=== PATIENT | female | born 1930 | race American Indian/Alaskan Native ===

== ENCOUNTER 2017-09-19 13:04 | Emergency (ER) | payer MEDICARE, OTHER ==
[~2017-09-19] VITALS: Ht 152.4 cm; Wt 74.4 kg
[~2017-09-19 13:04] MED LIST: AMLODIPINE BESYL5 MG PO; CALCIUM 600 +1 EAC3 PO; CEPHALEXIN250 MG PO; COLACE100 MG PO; DICLOFENAC SOD100 GM TOP; HYDROCHLOROTHIA25 MG PO; LISINOPRIL40 MG PO; MAG-OXIDE400 MG PO; NORCO 5-325 TA1 EACH PO; NOVOLOG100 UNITS/ SUB-Q; POTASSIUM CHLO10 MEQ PO; PRILOSEC20 MG PO; TOPROL XL100 MG PO; VICODIN 5-3001 EACH PO
== END 2017-09-19 18:43 | disposition home or self-care (01) ==
LOC: ED 13:04
DX: H57.11 Ocular pain, right eye (principal); R70.0 Elevated erythrocyte sedimentation rate; E11.9 Type 2 diabetes mellitus without complications; I10 Essential (primary) hypertension; F17.200 Nicotine dependence, unspecified, uncomplicated; Z90.49 Acquired absence of other specified parts of digestive tract; Z88.1 Allergy status to other antibiotic agents; Z79.899 Other long term (current) drug therapy; Z98.890 Other specified postprocedural states
CPT/HCPCS: 80053; 85025; 85651; 99283